=== PATIENT | male | born 1950 | race Caucasian/White ===

== ENCOUNTER 2021-08-31 10:07 | Emergency (ER) | payer OTHER, SELFPAY ==
[2021-08-31 10:13] VITALS: BP 175/75; PULSE 86; RESP 18; TEMP 37.5; O2SAT 96
--- NOTE | 2021-08-31 10:14 | ED.GENADUL_ITS ---
Discharge Plan Disposition Patient Disposition: HOME Discharge Details Clinical Impression: Constipation Primary Care Provider: Alvaro Gold ED Provider: Grabiel Montaño Home Meds and New Rx's Prescriptions: New magnesium citrate [Citrate of Magnesia] Solution 300 ml PO ONCE Qty: 296 0RF Rx Instructions: as a single dose No Action vitamin B complex [B Complex-Vitamin B12] tablet 1 tab PO DAILY Fcrxscqp-Ucxdox-YMD with vit D 750-30-1,000-1 sn-pr-fdtt-mg tablet PO DAILY Label Comments: 2 tab daily calcium 1,200 mg PO multivitamin tablet 1 tab PO DAILY Probiotic 15 billion cell Capsule 2 cap PO DAILY Discharge Instructions Instructions: Constipation (ED) Additional Instructions: Drink plenty of fluids. Take the magnesium citrate as prescribed. Be mindful to stay home since you could have multiple episodes of bowel movements Medical Decision Making Medical Records Medical records narrative: 70-year-old gentleman with a 3-day history of decreased bowel movements. Abdominal exam is unremarkable. Rectal exam reveals an empty rectal vault. At this time I do not believe he needs any imaging or blood work. I have discussed this options with him he would like to try some magnesium citrate at home. HPI General Date/Time Provider Initiated Documentation: 08/31/21 10:14 . HPI Narrative: 70-year-old gentleman presents to the emergency department with a chief complaint constipation. He states that he had chicken primavera for the first time on Thursday. He thinks he ate too much and since then he has been unable to have an adequate bowel movement. He feels bloated. He says that he has been trying to make himself belch so that he feels better. Passing gas relieves some of the discomfort in his abdomen. No fevers no chills. No nausea no vomiting. No previous surgery in the abdomen. He tried taking some laxatives this morning, approximately 3 hours ago and has had no result Related Data Home Medications Medication Instructions Recorded Confirmed multivitamin 1 tab PO DAILY 08/04/18 08/31/21 calcium 1,200 mg PO 08/09/18 12/06/19 glucosamine 750 av-ndysqt-qyc 2-C tab PO DAILY 08/09/18 12/06/19 30 mg-D3 1,000 unit-regan 1 mg tablet (Pefbvthwrii-Tcfjnzvmttn-HYQ + vitD) vitamin B complex (B 1 tab PO DAILY 08/09/18 08/31/21 Complex-Vitamin B12 tablet) Lactobacillus acidophilus and 2 cap PO DAILY 08/31/21 08/31/21 rhamnosus 15 billion cell capsule (Probiotic) magnesium citrate (Citrate of 300 ml PO ONCE #296 mL 08/31/21 Magnesia oral) Previous Rx's Medication Instructions Recorded magnesium citrate (Citrate of 300 ml PO ONCE #296 mL 08/31/21 Magnesia oral) Allergies Allergy/AdvReac Type Severity Reaction Status Date / Time No Known Allergies Allergy Verified 08/31/21 10:16 Review of Systems Narrative: Constitutional negative for fevers and chills. Negative for malaise and fatigue HEENT negative Cardiovascular no chest pain no shortness of breath no palpitations Pulmonary no cough GI see HPI negative MSK no myalgias or arthralgias Neuro no headaches Psych mild anxiety Skin no rashes Endo no weight gain or weight loss Hematological normal blood thinners PFSH All Active Problems (Updated 08/31/21 @ 10:43 by Grabiel Montaño MD) Constipation (Acute) GERD (gastroesophageal reflux disease) (Chronic) Family History (Updated 01/07/18 @ 10:42 by Haven Grant) Father Prostate cancer Mother No problems noted. Social History (Updated 08/09/18 @ 14:02 by Gloria Banda LPN) Smoking/Tobacco Use Status: Never Smoking risk assessment performed?: Yes Alcohol Intake: current Alcohol Intake frequency: holidays/special occasions only Drug use: Never Substance use type: does not use Household members: spouse Housing: house Number of Children: 2 current occupation: [employer] What is your relationship status?: Panel score (0-1 are the most socially isolated patients): 1 What type of physical activity do you participate in: other Details: physically active daily Seatbelt use: always Drive intox or ride w/intox emergency medical technician/driver: No Working smoke detector in home: Yes Fire extinguisher in home: Yes Carbon monox detector in home: Yes Do you feel safe at home: Yes Do you feel safe in your relationship?: Yes Exam Narrative Exam Narrative: Awake alert oriented x3, no acute distress pleasant cooperative PERRLA EOMI MMM anicteric Supple neck Respiratory normal work of breathing Cardiovascular good peripheral pulses 2+ radial Abdomen soft nondistended nontender I do not appreciate any organomegaly. Rectal exam reveals an empty rectal vault. Skin no rashes Neuro grossly intact Extremities 5/5 strength bilaterally Psych normal mood and affect
== END 2021-08-31 10:50 | disposition home or self-care (01) ==
PROVIDERS: Emergency Provider Emergency Medicine; PCP Family Medicine
DX: K59.00 Constipation, unspecified (principal)
CPT/HCPCS: 99283

== ENCOUNTER → 2023-08-05 12:27 | Outpatient (CLI) | payer MEDICARE, SELFPAY ==
--- NOTE | 2023-08-05 09:15 | DI.RAD_ITS ---
Exam(s) XR KNEE LT 3V AP,LAT,KARLOS EXAM: XR KNEE LT 3V AP,LAT,KARLOS CLINICAL HISTORY: lt knee pain, swelling,M25.562, M25.462. TECHNIQUE: 2D digital imaging was performed. Three views. COMPARISON: No exams were available for comparison FINDINGS: BONES: No acute fracture is present. No bony destructive lesion is seen. JOINTS: The knee is normally aligned. A joint effusion is seen. The joint spaces are maintained. Minimal degenerative changes. SOFT TISSUE: Normal. IMPRESSION: Joint effusion. DATA REPOSITORY: RADIATION DOSE DELIVERED:
== END ==
PROVIDERS: PCP Family Medicine; Visit Provider Nurse Practitioner
DX: M25.562 Pain in left knee (principal); M25.462 Effusion, left knee
CPT/HCPCS: 73562

== ENCOUNTER 2023-08-05 12:44 | Outpatient (CLI) | payer MEDICARE, SELFPAY ==
[2023-08-05 10:28] LABS: Abs Immature Grans 0.02 10^3/uL (0.0-0.06); Absolute Basophil Count 0.02 10^3/uL (0.0-0.2); Absolute Eosinophil Count 0.08 10^3/uL (0.0-0.7); Absolute Lymphocyte Count 1.44 10^3/uL (1.2-3.4); Absolute Monocyte Count 1.08 10^3/uL (0.1-0.8); Absolute Neutrophil Count 3.31 10^3/uL (1.2-6.7); Basophils % 0.3 %; Eosinophils % 1.3 %; HCT 47.1 % (40.0-50.0); HGB 15.2 g/dL (13.5-17.5); Immature Grans % 0.3 %; Lymphocytes % 24.2 %; MCH 28.3 pg (27.0-33.0); MCHC 32.3 % (32.0-36.0); MCV 88 fL (80-95); MPV 9.8 fL (8.0-11.0); Monocytes % 18.2 %; Neutrophils % 55.7 %; Platelet Count 294 10^3/uL (130-400); RBC 5.37 10^6/uL (4.36-5.78); RDW 13.2 % (11.8-14.1); RDW-SD 42.8 fL; WBC 5.95 10^3/uL (4.4-10.8)
[2023-08-05 10:45] LABS: Uric Acid 6.2 mg/dL (3.5-7.2)
[2023-08-06 10:03] LABS: Lyme Ab w Rflx to Lyme Confirm Negative (Negative)
[2023-08-08 00:09] LABS: Anaplasma phagocytophilum Negative (Negative); B. miyamotoi PCR Negative (Negative); Babesia divergens/MO-1 Negative (Negative); Babesia duncani Negative (Negative); Babesia microti Negative (Negative); Ehrlichia chaffeensis Negative (Negative); Ehrlichia ewingii/canis Negative (Negative); Ehrlichia muris eauclairensis Negative (Negative)
== END 2023-08-05 12:45 | disposition home or self-care (01) ==
LOC: LBO 12:46
PROVIDERS: PCP Family Medicine; Visit Provider Nurse Practitioner
DX: M25.48 Effusion, other site (principal); R50.9 Fever, unspecified
CPT/HCPCS: 36415; 87798; 84550; 85025; 86618

== ENCOUNTER 2023-09-28 04:15 | Outpatient (CLI) | payer MEDICARE, SELFPAY ==
[2023-09-28 14:29] LABS: Anion Gap 8.8 mmol/L (3-11); BUN 22 mg/dL (7-18); CO2 28.2 mmol/L (21.0-32.0); CREATININE 1.3 mg/dL (0.70-1.30); Calcium 9.4 mg/dL (8.5-10.1); Chloride 104 mmol/L (98-107); Estimated GFR 58.73 (mL/min/1.73m2); Glucose 200 mg/dL (74-106); Sodium 141 mmol/L (136-145)
== END 2023-09-28 04:16 | disposition home or self-care (01) ==
LOC: LBO 04:16
PROVIDERS: PCP Family Medicine; Visit Provider Student in an Organized Health Care Education/Training Program
DX: Z91.89 Other specified personal risk factors, not elsewhere classified (principal); Z79.1 Long term (current) use of non-steroidal anti-inflammatories (NSAID)
CPT/HCPCS: 36415; 80048

== ENCOUNTER → 2023-10-12 07:47 | Outpatient (BNVA) | payer MEDICARE, SELFPAY | PROVIDERS: PCP Family Medicine; Referring Provider Family Medicine; Visit Provider Student in an Organized Health Care Education/Training Program | DX: M25.462 Effusion, left knee (principal) | CPT/HCPCS: 99213 ==

== ENCOUNTER 2023-11-27 00:26 | Outpatient (CLI) | payer MEDICARE, SELFPAY ==
--- OUTSIDE RECORDS SUMMARY | 2023-11-27 00:35 | XMS_ITS | Encounter Summary ---
Author Organization [facility] Address [address] [place] [address] Care Team Providers Care Case Manager Name Role Phone Unavailable Primary Care Provider Unavailabl e Encounter Details Date Type Department Care Team (Late st Contact Info) Description 08/05/2023 Lab Requisition [facility] [address] [place] [address] Outr Resulting Lab, Provider Social History Tobacco Use Types Packs/Day Years Used Date Smoking Tobacco: Never Assessed Sex and Gender Information Value Date Recorded Sex Assigned at Not on file Gender Identity Not on file Sexual Orientation Not on file documented as of this encounter Plan of Treatment Not on file documented as of this encounter Procedures Procedure Name Priority Date/Time Associated Diagnosis Comments LYME AB Routine 08/05/2023 9:29 EDT documented in this encounter Results * LYME AB (08/05/2023 9:29 EDT) Lyme Ab Negative Negative 08/06/2023 9:59 EDT [facility] Blood VENOUS BLOOD / Unknown 08/05/2023 9:29 EDT 08/05/2023 17:27 EDT Provider Outr Resulting Lab IMMUNOLOGY A ND SEROLOGY ORDERABLES [facility] [address] [place] [address] documented in this encounter Visit Diagnoses Not on filedocumented in this encounter
--- OUTSIDE RECORDS SUMMARY | 2023-11-27 00:35 | XMS_ITS | Referral Summary ---
Author Organization [facility] Address [address] [place] [address] Care Team Providers Care Coordinator Mining [employer] Name Role Phone Unavailable Primary Care Provider Unavailabl e Social History Tobacco Use Types Packs/Day Years Used Date Smoking Tobacco: Never Assessed Sex and Gender Information Value Date Recorded Sex Assigned at Not on file Gender Identity Not on file Sexual Orientation Not on file Plan of Treatment Not on file
--- OUTSIDE RECORDS SUMMARY | 2023-11-27 00:35 | XMS_ITS | Clinical Summary ---
Author Organization [facility] Address [address] [place] [address] Care Team Providers Care Assembler Insulator Name Role Phone Unavailable Primary Care Provider Unavailabl e Social History Tobacco Use Types Packs/Day Years Used Date Smoking Tobacco: Never Assessed Sex and Gender Information Value Date Recorded Sex Assigned at Not on file Gender Identity Not on file Sexual Orientation Not on file Plan of Treatment Not on file
--- NOTE | 2023-11-27 07:00 | DI.MRI_ITS ---
Exam(s) MR LOWER JOINT LT WO EXAM: MR LOWER JOINT LT WO CLINICAL HISTORY: LT KNEE PAIN, JOINT EFFUSION KNEE, M25.469 TECHNIQUE: Multiplanar multisequence MRI of the knee was performed. COMPARISON: CR XR KNEE LT 3V AP,LAT,KARLOS from 08/05/2023 FINDINGS: EFFUSION: With no prominent joint effusion there is no Camejo cyst in the medial popliteal fossa. Rio e fluid is seen posterolaterally behind the fibular head. MARROW:There is no evidence of fracture, bone contusion, nor osteochondral defects in the distal femu r proximal tibia-fibula. There are, however, degenerative subarticular cyst in the posterior patella -see below.. PATELLOFEMORAL COMPARTMENT: The quadriceps tendon is intact. The patellar ligament is intact. There is advanced narrowing of the retropatellar cartilage over the medial compartment and there are multiple small confluent degenerative subarticular cysts at this level where there is full-thickness cartilage thinning above the midline of the patella. Only minimal thinning noted in the retropatella r cartilage over the lateral facet although there does appear to be some intra cartilage signal abnor mality at this level. There is no evidence of distinct osteochondral defect. No evidence to suggest prior patellar dislocation and there are no patellar retinacular tears evident. CRUCIATE LIGAMENTS: The anterior cruciate ligament is intact.The posterior cruciate ligament is intac t. MEDIAL COMPARTMENT/MEDIAL MENISCUS: There is an oblique tear in the posterior horn of the medial meni scus. This tear violates the inferior articular surface. There is some degenerative signal seen wit hin the posterior horn also at the level the root. The anterior horn of the medial meniscus appears intact.. There is articular cartilage thinningin the medial compartment over the inner half of the medial femo ral condyle posterior to the midline. No osteochondral defects. No degenerative subarticular cysts and no osteophytes evident. MEDIAL COLLATERAL LIGAMENT: Intact. No tear. No evidence of significant meniscocapsular separation. LATERAL COMPARTMENT/LATERAL MENISCUS: There is no evidence of lateral meniscal tear.There are no ashly dral defects, osteochondral defects, subarticular marrow edema, nor osteophytes evident. ILIOTIBIAL BAND: Intact LATERAL COLLATERAL LIGAMENT COMPLEX: The fibular collateral ligament is intact. The biceps femoris t endon is intact.Popliteus muscle and tendon are intact. IMPRESSION: 1. There is an oblique tear in the posterior horn of the medial meniscus as described above. The ant erior horn is intact. Lateral meniscus appears unremarkable 2. There are no cruciate nor collateral ligament tears. 3. 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 There are immedi ately overlying confluent degenerative subarticular cysts in the posterior patella at this level. No distinct osteochondral defects seen at this level. No patellar fractures and no generalized patella r edema. Quadriceps and patellar tendons appear unremarkable. 4. No prominent joint effusion or Camejo cyst in the medial popliteal fossa. There is, however, a wel l-defined tear shaped fluid collection in the posterolateral aspect of the knee posterior to the fibu lar head measuring 3 cm craniocaudal by 1.3 cm wide by 1 cm AP. DATA REPOSITORY:
== END 2023-11-27 00:46 ==
LOC: DI 00:26
PROVIDERS: PCP Family Medicine; Visit Provider Student in an Organized Health Care Education/Training Program
DX: M23.222 Derangement of posterior horn of medial meniscus due to old tear or injury, left knee (principal)
CPT/HCPCS: 73721

== ENCOUNTER → 2023-12-07 14:10 | Outpatient (BNVA) | payer MEDICARE, SELFPAY | PROVIDERS: PCP Family Medicine; Referring Provider Family Medicine; Visit Provider Student in an Organized Health Care Education/Training Program | DX: M25.462 Effusion, left knee (principal); M22.42 Chondromalacia patellae, left knee; S83.242D Other tear of medial meniscus, current injury, left knee, subsequent encounter; X58.XXXD Exposure to other specified factors, subsequent encounter | CPT/HCPCS: 99213 ==